=== PATIENT | male | born 1990 | race Caucasian/White ===

== ENCOUNTER 2025-09-05 11:10 | Emergency (ER) | payer SELFPAY ==
--- NOTE | ~2025-09-05 | XR_ITS ---
EXAMINATION: XR chest 2V, 09/05/2025 12:28 CDT HISTORY: chest pain COMPARISON: No comparisons available. Technique: 2 views obtained. Findings: The lungs are clear, no effusion. No pneumothorax. Heart is normal size. Mediastinal and hilar contours are within normal limits. Bony thorax no acute abnormality. Impression: No acute cardiopulmonary abnormality. Reviewed, dictated and finalized at location P. Impression: No acute cardiopulmonary abnormality.
--- NOTE | ~2025-09-05 | US_ITS ---
EXAMINATION: US venous doppler [facility] DATE: 09/05/2025 12:29 INDICATION: Bilateral foot and ankle swelling TECHNIQUE: Grayscale ultrasound images without and with compression and Doppler ultrasound images of the bilateral lower extremity veins were obtained. COMPARISON: None. FINDINGS: The visualized portions of right common femoral vein, profunda (deep) femoral vein, femoral vein, popliteal vein, posterior tibial veins, peroneal veins, gastrocnemius vein and greater saphenous vein outflow are patent. The visualized portions of left common femoral vein, profunda femoral vein, femoral vein, popliteal vein, posterior tibial veins, peroneal veins, gastrocnemius vein and greater saphenous vein outflow are patent. IMPRESSION: 1. No deep venous thrombosis in either lower limb. Reviewed, dictated and finalized at location A.
--- NOTE | 2025-09-05 11:12 | ECG_ITS ---
Test Date: 2025-09-05 11:16:19 Measurements Intervals [place] Rate: 88 P: 47 CA: 158 QRS: 12 QRSD: 84 T: 34 QT: 323 QTc: 393 Interpretive Statements SINUS RHYTHM NORMAL ECG No previous ECG available for comparison Electronically Signed On 09-05-2025 11:47:57 CDT by Keith Moreland D.O.
[2025-09-05 11:17] VITALS: BP 146/84; PULSE 89; RESP 20; TEMP 36.9; O2SAT 99
[2025-09-05 11:23] VITALS: O2SAT 99
[2025-09-05 11:25] VITALS: BP 146/84; PULSE 80; PULSE 84; RESP 17; TEMP 36.8; O2SAT 98
[2025-09-05] MEDS: ASPIRIN 81 MG CHEWABLE TABLET 324 MG PO (11:26)
[2025-09-05 11:27] LABS: Hematocrit 42.6 % (42.0-52.0); Hemoglobin 13.5 g/dL (14.0-18.0); Immature Granulocyte Percent A 0.8 % (0-0.5); Lymphocytes Absolute Auto 2.18 K/mm3 (0.9-3.2); Mean Corpuscular HGB Conc 31.7 g/dl (32-36); Mean Corpuscular Hemoglobin 27.6 pg (26-34); Mean Corpuscular Volume 86.9 fl (80-100); Nucleated Red Blood Cells Absolute Auto 0.000 K/mm3 (0.0-0.012); Nucleated Red Blood Cells Perc 0.0 % (0.0-0.2); Platelet Count Result 382 k/mm3 (150-375); Red Blood Count 4.90 M/mm3 (4.6-6.20); White Blood Count 9.5 K/mm3 (4.5-10.0)
[2025-09-05 11:39] LABS: INR 0.9; Prothrombin Time 12.2 Seconds (11.1-14.7)
[2025-09-05 11:39] LABS: Alanine Aminotransferase 21 U/L (6-50); Albumin Level 4.1 g/dL (3.5-5.1); Alkaline Phosphatase 102 U/L (38-126); Anion Gap 5 mmol/L (4-12); Aspartate Amino Transferase 23 U/L (17-59); Bilirubin,Total 0.2 mg/dL (0.2-1.3); Blood Urea Nitrogen 8 mg/dL (9-20); Calcium 9.6 mg/dL (8.4-10.2); Carbon Dioxide 24 mmol/L (22-30); Chloride 105 mmol/L (98-107); Estimated CRCL calculation 133 ml/min; Estimated Glomerular Filt Rate > 60; Glucose 99 mg/dL (65-110); Lipase 90 U/L (23-300); Potassium 4.6 mmol/L (3.4-5.0); Sodium 134 mmol/L (137-145); Total Protein 7.5 g/dL (6.3-8.2)
[2025-09-05 11:40] LABS: Partial Thromboplastin Time 26.6 Seconds (22.3-36.8)
[2025-09-05 11:49] LABS: Troponin I < 0.012 ng/mL (0.000-0.034)
--- NOTE | 2025-09-05 11:51 | ED.CHESTPAIN ---
HPI - Chest Pain General Chief Complaint: Chest Pain Stated Complaint: chest pain, feet swelling Time Seen by Provider: 09/05/25 11:15 Source: patient Mode of arrival: ambulatory Limitations: no limitations History of Present Illness HPI narrative: Patient is a 35-year-old male who presents the ED with report of chest pain. Reports he developed midsternal chest pain last night after eating [place]. Tried taking TUMS at home but denied improvement. States he woke up this morning with persistent chest pain and swelling in his miranda feet/ankles, worse in L foot. Also reports mild discomfort in upper abdomen. Denies hx of cardiac issues. Denies Hx of blood clots. Does not currently take anything for acid reflux. Patient reported to triage nurse that he quit using cocaine around 1 month ago. Denies numbness or pain of BLE. Denies injury. Related Data Allergies Allergy/AdvReac Type Severity Reaction Status Date / Time No Known Allergies Allergy Verified 09/05/25 11:26 Review of Systems Review of Systems: All systems reviewed & are unremarkable except as noted in HPI. All systems reviewed & are unremarkable except as noted in HPI and below [facility] Past Medical History Medical History (Updated 09/05/25 @ 14:52 by Nadya Melendez PA-C) Cyclical vomiting Pancreatitis Surgical History Surgical History No significant past surgical history Social History Social History Smoking status: Current every day smoker Exam Narrative: GENERAL: Mildly unkempt, well nourished, non-toxic, in no acute distress. HEAD: Normocephalic, atraumatic. RESPIRATORY: Airway patent, respirations nonlabored. Clear to auscultation bilaterally, no rales, rhonchi, wheezing. CARDIOVASCULAR: Regular rate and rhythm without murmurs, rubs, or gallops. ABDOMINAL: Soft, mild tenderness palpation in epigastric region, nondistended. Normoactive BS. MUSCULOSKELETAL: Moves all extremities. No gross deformities. Mild tenderness to palpation over lower midsternal chest. Trace peripheral edema in bilateral feet/ankles, slightly worse on left. Sensation intact. Pedal pulses intact. SKIN: Warm, dry, normal color. NEURO: A&O X3. Speech clear. Cranial nerves II-XII grossly intact. Steady gait. No ataxic movements. PSYCHIATRIC: Appropriate mood and affect. Normal interaction. Course Vital Signs Vital signs: Vital Signs Temperature 98.5 F 09/05/25 11:17 Pulse Rate 89 09/05/25 11:17 Respiratory Rate 20 09/05/25 11:17 Blood Pressure 146/84 H 09/05/25 11:17 Pulse Oximetry 99 09/05/25 11:17 Oxygen Delivery Room Air 09/05/25 11:17 Temperature 98.2 F 09/05/25 11:25 Pulse Rate 84 09/05/25 11:25 Respiratory Rate 17 09/05/25 11: Blood Pressure 146/84 H 09/05/25 11: Pulse Oximetry 98 09/05/25 11:25 Oxygen Delivery Room Air 09/05/25 11:23 MDM - Chest Pain MDM Narrative Medical decision making narrative: Patient presented to ED with midsternal chest pain, swelling of extremities, upper abdominal pain. Vital signs are stable upon arrival. Patient is in no acute distress. Neurovascularly intact. EKG with sinus rhythm, no concerning ST changes. Baseline troponin undetectable. BNP WNL D-dimer WNL Chest x-ray clear Venous doppler US negative for DVT HEART score 1 3 hr troponin negative Overall reassuring workup. Low suspicion for ACS at this time. Discussed lab and imaging findings with patient. He is sleeping on re-evaluation. Will start patient on PPI. Recommended follow-up with PCP for further evaluation. Discussed dietary modifications. Patient is in agreement with plan, given return precautions. Discharged in stable condition. Medical Records Data Attestation: I reviewed the patient's medical records. Lab Data Attestation: I reviewed the patient's lab results. 09/05/25 11:20 09/05/25 11:20 Labs: Lab Results 09/05/25 09/05/25 09/05/25 Range/Units 11:20 11:22 14:17 WBC 9.5 (4.5-10.0) K/mm3 RBC 4.90 (4.6-6.20) M/mm3 Hgb 13.5 L (14.0-18.0) g/dL Hct 42.6 (42.0-52.0) % MCV 86.9 (80-100) fl MCH 27.6 (26-34) pg MCHC 31.7 L (32-36) g/dl RDW 14.8 H (11.5-14.5) % Plt Count 382 H (150-375) k/mm3 MPV 8.3 (7.4-10.4) fl Immature Gran % (Auto) 0.8 H (0-0.5) % Neut % (Auto) 67.4 (45.5-73.1) % Lymph % (Auto) 22.9 (18.3-44.2) % [place] % (Auto) 6.6 (2.6-8.5) % Eos % (Auto) 1.7 (0-4.4) % Baso % (Auto) 0.6 (0.2-1.2) % Lymph # (Auto) 2.18 (0.9-3.2) K/mm3 [place] # (Auto) 0.6 (0.1-0.6) K/mm3 Eos # (Auto) 0.2 (0-0.3) K/mm3 Baso # (Auto) 0.1 (0.0-0.1) K/mm3 Abs Immat Gran (auto) 0.08 H (0.00-0.031) K/mm3 Absolute Neuts (auto) 6.4 (1.3-6.7) K/mm3 Absolute Nucleated RBC 0.000 (0.0-0.012) K/mm3 Nucleated RBC % 0.0 (0.0-0.2) % PT 12.2 (11.1-14.7) Seconds INR 0.9 APTT 26.6 (22.3-36.8) Seconds D-Dimer < 0.27 (<0.48) ug/mL Sodium 134 L (137-145) mmol/L Potassium 4.6 (3.4-5.0) mmol/L Chloride 105 (98-107) mmol/L Carbon Dioxide 24 (22-30) mmol/L Anion Gap 5 (4-12) mmol/L BUN 8 L D (9-20) mg/dL Creatinine 0.69 L (0.7-1.3) mg/dL Estim Creat Clear Calc 133 ml/min Estimated GFR > 60 (59 - ) Glucose 99 (65-110) mg/dL Calcium 9.6 (8.4-10.2) mg/dL Total Bilirubin 0.2 (0.2-1.3) mg/dL AST 23 (17-59) U/L ALT 21 (6-50) U/L Alkaline Phosphatase 102 (38-126) U/L Troponin I < 0.012 < 0.012 (0.000-0.034) ng/mL NT-Pro-B Natriuret Pep < 20 (19.9-100) pg/mL Total Protein 7.5 (6.3-8.2) g/dL Albumin 4.1 (3.5-5.1) g/dL Lipase 90 (23-300) U/L Imaging Data Attestation: I personally reviewed and interpreted this imaging study as follows: Radiologist's impression: ITS Impressions Venous Doppler Study 09/05/25 12:34 IMPRESSION: 1. No deep venous thrombosis in either lower limb. Chest X-Ray 09/05/25 12:35 Impression: No acute cardiopulmonary abnormality. ECG Data EKG #1: Attestation: I personally reviewed and interpreted this ECG as follows: ECG completion date: 09/05/25 ECG completion time: 11:16 EKG Interpretation: normal rate (88), sinus rhythm and no ST changes Discharge Plan Discharge Clinical Impression: Atypical chest pain Patient Disposition: Home Condition: Stable Instructions: Antibiotic Form, Chest Pain (ED), Diet for Stomach Ulcers and Gastritis (ED) Additional Instructions: Take Protonix daily as prescribed. Avoid foods that are very greasy, spicy, fatty, acidic. Limited alcohol use. Limit NSAID use (ibuprofen, motrin, aleve/naproxen). Stay well hydrated. Follow-up with your primary care doctor for further evaluation. Return to the ED if you experience worsening or severe pain, difficulty breathing, unable to keep down food or drink, rectal bleeding, dark black stools, or any other symptoms of concern. Patient Language: Occitan Prescriptions: New pantoprazole [Protonix] 40 mg tablet,delayed release (DR/EC) 40 mg PO HS 28 Days Qty: 28 0RF Follow-up/Referrals: Scott Cross MD [Physician, Family Practice] Referral Note: PRIMARY CARE UNKNOWN,DOCTOR [Primary Care Provider] Time of Disposition: 14:59 Quality HEART score for chest pain patients History: slightly suspicious ECG: normal Age: < or = to 45 years Risk factors: 1 or 2 risk factors Troponin: < or = to 1x normal limit Heart score: 1
[2025-09-05] MEDS: BELLADONNA ALK/PHENOB ELIX 10 ML, MAG HYDROX/ALUMINUM HYD/SIMETH 30 ML, LIDOCAINE 2% VI... PO (12:00)
--- OUTSIDE RECORDS SUMMARY | 2025-09-05 12:25 | XMS_ITS | Clinical Summary ---
Author Organization [facility] Address [address] [place] [address] Care Team Providers Care Podiatry Assistant Name Role Phone Unavailable Primary Care Provider Unavailabl e Source Comments [facility],non-owned Affiliates and Associated Physician Practices is amultiple site organization consisting of ambulatory clinics and hospital sitesin [place], [place], [place] and [place]. This disclosure is being madepursuant to the Care Everywhere program and may not contain all information available regarding this patient. Last updated 18.[facility] Allergies Active Allergy Reactions Criticality Noted Date Comments Peanut-Derived Rash,Nausea and/or Vomiting Low 12/31 Medications * Be aware that medications may not be up to date on this document. Alwaysverify current medications with the patient. Other Active Other Active Other Active Alum & Mag Hydroxide-Simeth (ALMACONE II) 400-400-40 MG/5ML Take 15 mL by mouth q6h PRN (Other). 355 mL 0 8 Active promethazine (PHENERGAN) 25 MG tablet Take 25 mg by mouth q6h PRN (Nausea). 30 tablet 0 8 Active promethazine (PHENERGAN) 25 MG suppository Insert 25 mg into the rectum q12h PRN (Nausea). 10 suppository 0 8 Active hydrOXYzine hcl (ATARAX) 25 MG tablet Take 25 mg by mouth q6h PRN (Anxiety). 30 tablet 0 8 Active sertraline (ZOLOFT) 25 MG tablet Take 25 mg by mouth DAILY. 8 Active traMADol (ULTRAM) 50 MG tablet Take 50 mg by mouth q6h PRN (Pain). 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 Gender Identity Not on file Sexual Orientation Not on file Last Filed Vital Signs Vital Sign Reading Time Taken Comments Blood Pressure 120/65 02/08/2018 3:30 PM CDT Pulse 78 02/08/2018 3:30 PM CDT Temperature 36 C (96.8 F) 02/08/2018 12:36 PM CDT Respiratory Rate 21 02/08/2018 3:30 PM CDT Oxygen Saturation 97% 02/08/2018 3:30 PM CDT Inhaled Oxygen Concentration - - Weight 99.8 kg (220 lb) 02/08/2018 10:38 AM CDT Height 177.8 cm (5' 10) 01/12/2018 4:10 PM CARTON WAXING MACHINE OPERATOR Body Mass Index 31.57 01/12/2018 4:10 PM CARTON WAXING MACHINE OPERATOR Plan of Treatment Health Maintenance Due Date Last Done Comments HIV SCREENING 2005 HEPATITIS C SCREENING 03/27/2008 DTAP/TDAP/TD VACCINES (1 - Tdap) 2009 HEPATITIS B VACCINE (1 of 3 - 19+ 3-dose series) 2009 HPV VACCINE (1 - 3-dose SCDM series) 2017 DEPRESSION SCREENING 11/30/2024 COVID-19 VACCINE (1 - 2023-2 5 season) 2025 INFLUENZA VACCINE (#1) 2025 ZOSTER VACCINE (1 of 2) 2040 HIB VACCINE Aged Out No longer eligi ble based on patient's age to complete this topic MENINGOCOCCAL (Group B) VACC INE SHARED DECISION-MAKING Aged Out No longer eligibl e based on patient's age to complete this topic MENINGOCOCCAL GROUPS A/C/Y/W VACCINE Aged Out No longer eligible b ased on patient's age to complete this topic PNEUMOCOCCAL VACCINE Aged Out No long er eligible based on patient's age to complete this topic Insurance MEDICAID [facility] MEDICAID - [facility]
--- OUTSIDE RECORDS SUMMARY | 2025-09-05 12:25 | XMS_ITS | Clinical Summary ---
Author Organization [facility] Address [address] [place] [address] Phone Care Team Providers Care Inspector Water Pollution Control Name Role Phone Unavailable Primary Care Provider Unavailabl e Allergies No known active allergies Medications amLODIPine (NORVASC) 5 mg tablet Take 5 mg by mouth daily. Active traZODone (DESYREL) 100 mg tablet Take 100 mg by mouth daily at bedtime. Active sertraline (ZOLOFT) 100 mg tablet Take 100 mg by mouth daily. Active amitriptyline (ELAVIL) 25 mg tablet Take 1 Tablet (25 mg) by mouth daily at bedtime. 30 Tablet 03/24/2018 Active Active Problems Problem Noted Date Diagnosed Date Depression 03/23/2018 HTN (hypertension) 03/23/2018 Marijuana abuse 03/23/2018 Right upper quadrant abdominal pain 03/23/2018 Intractable cyclical vomiting with nausea 2017 Leukocytosis (leucocytosis) 03/23/2018 Dehydration Gastroenteritis Social History Tobacco Use Types Packs/Day Years Used Date Smoking Tobacco: Never Smokeless Tobacco: Never Sex and Gender Information Value Date Recorded Sex Assigned at Not on file Legal Sex Male 6:18 PM CDT Gender Identity Not on file Sexual Orientation Not on file Last Filed Vital Signs Vital Sign Reading Time Taken Comments Blood Pressure 120/70 03/24/2018 12:14 PM CDT Pulse 66 03/24/2018 12:14 PM CDT Temperature 36.8 C (98.3 F) 03/24/2018 12:14 PM CDT Respiratory Rate 18 03/24/2018 12:1 4 PM CDT Oxygen Saturation 96% 03/24/2018 12: 14 PM CDT Inhaled Oxygen Concentration - - Weight 100.2 kg (220 lb 14.4 oz) 03/24/2018 5:00 AM CDT Height 177.8 cm (5' 10) 03/23/2018 8:17 AM CDT Body Mass Index 31.7 03/23/2018 8:17 AM CDT Plan of Treatment Health Maintenance Due Date Last Done Comments DTAP/TDAP/TD VACCINES (1 - Tdap) 2009 HEPATITIS B VACCINES (1 of 3 - 19+ 3-dose series) 01/2009 HPV VACCINES (1 - 3-dose SCDM series) 2017 INFLUENZA VACCINE (#1) 2025 Advance Directives For more information, please contact: [phone] * Full Code (Latest Code Status on File) Date Activated Date Inactivated Comments 03/23/2018 2:10 AM 03/24/2018 5:44 PM
--- OUTSIDE RECORDS SUMMARY | 2025-09-05 12:25 | XMS_ITS | Clinical Summary ---
Author Organization [facility] Address [address] [place] [address] Care Team Providers Care Surveillance Officer Name Role Phone Tiffany Yo MD Primary Care Provider [phone] Allergies Active Allergy Reactions Criticality Noted Date Comments Peanut Anaphylaxis High 10/04/2019 Medications amitriptyline (ELAVIL) 25 mg tablet Take 1 tablet (25 mg total) by mouth nightly 30 tablet 10/05/[address] (PROTONIX) 40 mg EC tablet Take 1 tablet (40 mg total) by mouth daily for 14 days 14 tablet 10/05/2019 Active ondansetron (ZOFRAN) 4 mg tablet Take 1 tablet (4 mg total) by mouth every 8 (eight) hours as needed for nausea or vomiting 20 tablet 10/05/2019 Active Active Problems Problem Noted Date Diagnosed Date Intractable vomiting with nausea 11/30/2022 Abdominal pain 10/05/2019 Assessment & Plan (10/05/2019 10:17 AM SPOOL WINDER): Left-sided, with associated nausea/vomiting. Patient denies pain this morning. -trial GI cocktail and famotidine, prn morphine, zofran - Restarting amitriptyline Assessment & Plan (10/05/2019 12:32 AM SPOOL WINDER): Left-sided, with associated nausea/vomiting. Differential includes PUD, gastritis, marijuana hyperemesis syndrome (though denies significant use when asked), cyclic vomiting syndrome, IBS. Unlikely pancreatitis, diverticulitis given normal imaging and negative lipase. -trial GI cocktail and famotidine again, prn morphine, zofran -Consider restarting amitriptyline HTN (hypertension) 10/05/2019 Assessment & Plan (10/05/2019 10:15 AM SPOOL WINDER): Previously on norvasc- patient been off for a couple of months, currently normotensive. Patient reports checking his blood pressure at home and having findings in the 200s - continue to monitor Assessment & Plan (10/05/2019 12:33 AM SPOOL WINDER): Previously on norvasc, currently normotensive, CTM Depression 10/05/2019 Assessment & Plan (10/05/2019 12:33 AM SPOOL WINDER): Previously on sertraline and trazodone, has been out of medications as he is unable to go see his doctor. Previously depression and stress have worsened symptoms. -Consider restarting meds when tolerating PO Nausea and vomiting 10/05/2019 Assessment & Plan (10/05/2019 10:19 AM SPOOL WINDER): Patient tolerating clear liquid breakfast, advancing for lunch. Patient believes symptoms could be related to stressors at home. Also reports symptoms consistent with GERD - Zofran prn, famotidine - PPI trial at discharge Surgical History Surgery Date Site/Laterality Comments CHOLECYSTECTOMY Medical History Medical History Date Comments Hypertension Depression Pancreatitis Diverticulosis Social History Tobacco Use Types Packs/Day Years Used Date Smoking Tobacco: Former Alcohol Use Standard Drinks/Week Comments Not Currently 0 (1 standard drink = 0.6 oz pur e alcohol) Personal Safety Answer Date Recorded Getting School Help Needed Not on file 01/23 Sex and Gender Information Value Date Recorded Sex Assigned at Not on file Legal Sex Male 11:49 PM SPOOL WINDER Gender Identity Not on file Sexual Orientation Not on file Obstetrics History Last Filed Vital Signs Vital Sign Reading Time Taken Comments Blood Pressure 125/80 12/01/2022 3:55 AM SPOOL WINDER Pulse 87 12/01/2022 3:55 AM SPOOL WINDER Temperature 36.9 C (98.4 F) 12/01/2022 3:55 AM SPOOL WINDER Respiratory Rate 20 12/01/2022 3:55 AM SPOOL WINDER Oxygen Saturation 99% 12/01/2022 3:55 AM SPOOL WINDER Inhaled Oxygen Concentration - - Weight 93.2 kg (205 lb 6.4 oz) 10/05/2019 12:40 AM SPOOL WINDER Height 177.8 cm (5' 10) 10/05/2019 12:40 AM SPOOL WINDER Body Mass Index 29.47 10/05/2019 12:40 AM SPOOL WINDER Plan of Treatment Health Maintenance Due Date Last Done Comments Depression Screening 1990 DTaP/Tdap/Td Vaccine (1 - Tdap) 2001 Varicella Vaccines (1 of 2 - 13+ 2-dose series) 2003 Hepatitis B Screening 2008 Regular Well Visit/Exam 18-64 2008 HPV Vaccines (1 - 3-dose SCD M series) 2017 Influenza Vaccine (#1) 2025 Hepatitis C Screening Completed 10/04/2019 Pneumococcal vaccine <65 Aged Out No longer eligible based on patient's age to complete this topic Procedures Procedure Name Priority Date/Time Associated Diagnosis Comments HEPATITIS PANEL, ACUTE STAT 10/04/2019 11:09 AM SPOOL WINDER from Last 3 Months or Most Recently Relevant to Health Maintenance Results * Hepatitis panel, acute (10/04/2019 11:09 AM SPOOL WINDER) Hep A IgM Nonreactive Nonreactive [facility] Comment: Interpretive Data If test is reported as GRAYZONE, new sample should be drawn in two weeks for testing. Current interpretive data was last revised on 2016. Hep B core IgM Nonreactive Nonreactive [facility] Comment: Interpretive Data If test is reported as GRAYZONE, new sample should be drawn for testing. Current interpretive data was last revised on 2016. Hep C Ab Nonreactive Nonreactive [facility] Comment: Interpretive Data Positive and greyzone results should be confirmed by a molecular method. If positive or greyzone, a second separately collected sample should be submitted for Hepatitis C Virus RNA. Detection and Quantitation by Real-Time Reverse Library Clerical Assistant-PCR.Current Interpretive data was last revised on 2017. HepBsAg Nonreactive Nonreactive [facility] Blood specimen (specimen) 10/04/2019 11:09 AM SPOOL WINDER 10/04/2019 11:21 AM SPOOL WINDER Narrative [facility] - 10/04/2019 1:34 PM SPOOL WINDER [facility]LECTION LOCATION IS [facility] ED3- Magaly Goyal JOB SPECIFICATION WRITER LAB MICROBIOLOGY - GENERA L ORDERABLES Edited Result - Final [facility] Department [place] [address] from Last 3 Months or Most Recently Relevant to Health Maintenance Advance Directives For more information, please contact: [phone] * Full Code (Latest Code Status on File) Date Activated Date Inactivated Comments 11/30/2022 4:12 PM 12/01/2022 12:49 PM * Full Code Date Activated Date Inactivated Comments 10/05/2019 1:09 AM 10/05/2019 5:40 PM Care Teams Surveillance Officer Relationship Specialty Start Date End Date Tiffany Yo MD [address] [place] [id number] PCP - General 10/04/19
--- OUTSIDE RECORDS SUMMARY | 2025-09-05 14:40 | XMS_ITS | Clinical Summary ---
Author Organization [facility] Address [address] [place] [address] Care Team Providers Care Control Systems Designer Name Role Phone Tiffany Yo MD Primary Care Provider Allergies Active Allergy Reactions Criticality Noted Date [...] 10/05/2019 Assessment & Plan (10/05/2019 10:17 AM ADVERTISING DESIGNER): Left-sided, with associated nausea/vomiting. Patient denies pain this morning. -trial GI cocktail and famotidine, prn morphine, zofran - Restarting amitriptyline Assessment & Plan (10/05/2019 12:32 AM ADVERTISING DESIGNER): Left-sided, with associated nausea/vomiting. Differential includes PUD, gastritis, marijuana hyperemesis syndrome (though denies significant use when asked), cyclic vomiting syndrome, IBS. Unlikely pancreatitis, diverticulitis given normal imaging and negative lipase. -trial GI cocktail and famotidine again, prn morphine, zofran -Consider restarting amitriptyline HTN (hypertension) 10/05/2019 Assessment & Plan (10/05/2019 10:15 AM ADVERTISING DESIGNER): Previously on norvasc- patient been off for a couple of months, currently normotensive. Patient reports checking his blood pressure at home and having findings in the 200s - continue to monitor Assessment & Plan (10/05/2019 12:33 AM ADVERTISING DESIGNER): Previously on norvasc, currently normotensive, CTM Depression 10/05/2019 Assessment & Plan (10/05/2019 12:33 AM ADVERTISING DESIGNER): Previously on sertraline and trazodone, has been out of medications as he is unable to go see his doctor. Previously depression and stress have worsened symptoms. -Consider restarting meds when tolerating PO Nausea and vomiting 10/05/2019 Assessment & Plan (10/05/2019 10:19 AM ADVERTISING DESIGNER): Patient tolerating clear liquid breakfast, advancing for [...] on file Legal Sex Male 11:49 PM ADVERTISING DESIGNER Gender Identity Not on file Sexual Orientation Not on file Obstetrics History Last Filed Vital Signs Vital Sign Reading Time Taken Comments Blood Pressure 125/80 12/01/2022 3:55 AM ADVERTISING DESIGNER Pulse 87 12/01/2022 3:55 AM ADVERTISING DESIGNER Temperature 36.9 C (98.4 F) 12/01/2022 3:55 AM ADVERTISING DESIGNER Respiratory Rate 20 12/01/2022 3:55 AM ADVERTISING DESIGNER Oxygen Saturation 99% 12/01/2022 3:55 AM ADVERTISING DESIGNER Inhaled Oxygen Concentration - - Weight 93.2 kg (205 lb 6.4 oz) 10/05/2019 12:40 AM ADVERTISING DESIGNER Height 177.8 cm (5' 10) 10/05/2019 12:40 AM ADVERTISING DESIGNER Body Mass Index 29.47 10/05/2019 12:40 AM ADVERTISING DESIGNER Plan of Treatment Health Maintenance Due Date [...] HEPATITIS PANEL, ACUTE STAT 10/04/2019 11:09 AM ADVERTISING DESIGNER from Last 3 Months or Most Recently Relevant to Health Maintenance Results * Hepatitis panel, acute (10/04/2019 11:09 AM ADVERTISING DESIGNER) Hep A IgM Nonreactive Nonreactive [facility] Comment: Interpretive Data If test is reported as GRAYZONE, new sample should be drawn in two weeks for testing. Current interpretive data was last revised on 2016. Hep B core IgM Nonreactive Nonreactive [facility] Comment: Interpretive Data If test is reported as GRAYZONE, new sample should be drawn for testing. Current interpretive data was last revised on 2016. Hep C Ab Nonreactive Nonreactive [facility] Comment: Interpretive Data Positive and greyzone results should be confirmed by a molecular method. If positive or greyzone, a second separately collected sample should be submitted for Hepatitis C Virus RNA. Detection and Quantitation by Real-Time Reverse Casting Operator Helper-PCR.Current Interpretive data was last revised on 2017. HepBsAg Nonreactive Nonreactive [facility] Blood specimen (specimen) 10/04/2019 11:09 AM ADVERTISING DESIGNER 10/04/2019 11:21 AM ADVERTISING DESIGNER Narrative [facility] - 10/04/2019 1:34 PM ADVERTISING DESIGNER [facility] LOCATION IS [facility] ED3- Magaly Goyal MACHINE WORKER LAB MICROBIOLOGY - GENERA L ORDERABLES Edited Result - Final [facility] Department [place] [address] from Last 3 Months or Most Recently Relevant to Health Maintenance Advance Directives For more information, please contact: [phone] * Full Code (Latest Code Status on File) Date Activated Date Inactivated Comments 11/30/2022 4:12 PM 12/01/2022 12:49 PM * Full Code Date Activated Date Inactivated Comments 10/05/2019 1:09 AM 10/05/2019 5:40 PM Care Teams Control Systems Designer Relationship Specialty Start Date End Date Tiffany Yo MD [address] [place] [id number] PCP - General 10/04/19
--- OUTSIDE RECORDS SUMMARY | 2025-09-05 14:40 | XMS_ITS | Clinical Summary ---
Author Organization [facility] Address [address] [place] [address] Phone Care Team Providers Care Ship Wirer Name Role Phone Unavailable Primary Care Provider [...] Advance Directives For more information, please contact: [phone] * Full Code (Latest Code Status on File) Date Activated Date Inactivated Comments 03/23/2018 2:10 AM 03/24/2018 5:44 PM
--- OUTSIDE RECORDS SUMMARY | 2025-09-05 14:40 | XMS_ITS | Clinical Summary ---
Author Organization [facility] Myla Address [address] [place] [address] Care Team Providers Care Safe Deposit Clerk Name Role Phone Unavailable Primary Care Provider Unavailabl e Source Comments [facility],non-owned Affiliates and Associated Physician Practices is amultiple site organization consisting of ambulatory clinics and hospital sitesin [place], [place], [place] and [place]. This disclosure is being madepursuant to the Care Everywhere program and may not contain all information available regarding this patient. Last updated 18.[facility] Allergies Active Allergy Reactions Criticality Noted Date [...] on file Legal Sex Male 5:42 PM DIRECTOR OF PLACEMENT Gender Identity Not on file Sexual Orientation [...] 177.8 cm (5' 10) 01/12/2018 4:10 PM DIRECTOR OF PLACEMENT Body Mass Index 31.57 01/12/2018 4:10 PM DIRECTOR OF PLACEMENT Plan of Treatment Health Maintenance Due Date [...] age to complete this topic Insurance MEDICAID [facility] MEDICAID - [facility]
[2025-09-05 14:45] LABS: Troponin I < 0.012 ng/mL (0.000-0.034)
[2025-09-05 14:51] LABS: NT Pro B Type Natriuretic Pept < 20 pg/mL (19.9-100)
[2025-09-05 15:17] VITALS: BP 135/83; PULSE 84; RESP 15; TEMP 36.6; O2SAT 99
== END 2025-09-05 15:18 | disposition home or self-care (01) ==
PROVIDERS: Family Medicine; Emergency Provider Physician Assistant
DX: R07.89 Other chest pain (principal); F17.200 Nicotine dependence, unspecified, uncomplicated
CPT/HCPCS: 36415; 71046; 80053; 83690; 83880; 84484; 85025; 85380; 85610; 85730; 93005; 93970; 99284; A9270

== ENCOUNTER 2025-10-18 14:17 | Emergency (ER) | payer OTHER, SELFPAY ==
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
[2025-10-18 14:19] VITALS: BP 137/80; PULSE 81; RESP 18; TEMP 36.4; O2SAT 100
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
--- NOTE | 2025-10-18 19:19 | PC.NURSE ---
pt requesting something to eat. per dr mas, okay for pt to eat at this time
[2025-10-18] MEDS: CYCLOBENZAPRINE HCL 10 MG TABLET PO (19:21)
[2025-10-18] MEDS: IBUPROFEN 600 MG TABLET PO (19:21)
[2025-10-18 19:25] VITALS: BP 156/71; PULSE 80; RESP 16; O2SAT 97
--- OUTSIDE RECORDS SUMMARY | 2025-10-18 21:46 | XMS_ITS | Clinical Summary ---
Author Organization [facility] Address [address] [place] [address] Care Team Providers Care Display Department Manager Name Role Phone Unavailable Primary Care Provider Unavailabl e Source Comments [facility],non-owned Affiliates and Associated Physician Practices is amultiple site organization consisting of ambulatory clinics and hospital sitesin [place], [place], [place] and [place]. This disclosure is being madepursuant to the Care Everywhere program and may not contain all information available regarding this patient. 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 Gender Identity Not on file Sexual Orientation [...] 177.8 cm (5' 10) 01/12/2018 4:10 PM COIL FINISHER Body Mass Index 31.57 01/12/2018 4:10 PM COIL FINISHER Plan of Treatment Health Maintenance Due Date Last Done Comments HIV SCREENING 2005 HEPATITIS C SCREENING 03/27/2008 DTAP/TDAP/TD VACCINES (1 - Tdap) 2009 HEPATITIS B VACCINE (1 of 3 - 19+ 3-dose series) 2009 HPV VACCINE (1 - 3-dose SCDM series) 2017 DEPRESSION SCREENING 11/30/2024 COVID-19 VACCINE (1 - 2024-2 6 season) 2025 INFLUENZA VACCINE (#1) 2025 ZOSTER [...] age to complete this topic Insurance MEDICAID [facility] MEDICAID - [facility]
--- OUTSIDE RECORDS SUMMARY | 2025-10-18 21:46 | XMS_ITS | Clinical Summary ---
Author Organization [facility] Address [address] [place] [address] Phone Care Team Providers Care Operating Room Technician Name Role Phone Unavailable Primary Care Provider [...] Advance Directives For more information, please contact: [phone] * Full Code (Latest Code Status on File) Date Activated Date Inactivated Comments 03/23/2018 2:10 AM 03/24/2018 5:44 PM
--- OUTSIDE RECORDS SUMMARY | 2025-10-18 21:46 | XMS_ITS | Clinical Summary ---
Author Organization [facility] Address [address] [place] [address] Care Team Providers Care Respiratory Therapy Instructor Name Role Phone Tiffany Yo MD Primary Care Provider [phone] Allergies Active Allergy Reactions Criticality Noted Date [...] 10/05/2019 Assessment & Plan (10/05/2019 10:17 AM PERSONAL SECURITY SPECIALIST): Left-sided, with associated nausea/vomiting. Patient denies pain this morning. -trial GI cocktail and famotidine, prn morphine, zofran - Restarting amitriptyline Assessment & Plan (10/05/2019 12:32 AM PERSONAL SECURITY SPECIALIST): Left-sided, with associated nausea/vomiting. Differential includes PUD, gastritis, marijuana hyperemesis syndrome (though denies significant use when asked), cyclic vomiting syndrome, IBS. Unlikely pancreatitis, diverticulitis given normal imaging and negative lipase. -trial GI cocktail and famotidine again, prn morphine, zofran -Consider restarting amitriptyline HTN (hypertension) 10/05/2019 Assessment & Plan (10/05/2019 10:15 AM PERSONAL SECURITY SPECIALIST): Previously on norvasc- patient been off for a couple of months, currently normotensive. Patient reports checking his blood pressure at home and having findings in the 200s - continue to monitor Assessment & Plan (10/05/2019 12:33 AM PERSONAL SECURITY SPECIALIST): Previously on norvasc, currently normotensive, CTM Depression 10/05/2019 Assessment & Plan (10/05/2019 12:33 AM PERSONAL SECURITY SPECIALIST): Previously on sertraline and trazodone, has been out of medications as he is unable to go see his doctor. Previously depression and stress have worsened symptoms. -Consider restarting meds when tolerating PO Nausea and vomiting 10/05/2019 Assessment & Plan (10/05/2019 10:19 AM PERSONAL SECURITY SPECIALIST): Patient tolerating clear liquid breakfast, advancing for [...] on file Legal Sex Male 11:49 PM PERSONAL SECURITY SPECIALIST Gender Identity Not on file Sexual Orientation Not on file Last Filed Vital Signs Vital Sign Reading Time Taken Comments Blood Pressure 125/80 12/01/2022 3:55 AM PERSONAL SECURITY SPECIALIST Pulse 87 12/01/2022 3:55 AM PERSONAL SECURITY SPECIALIST Temperature 36.9 C (98.4 F) 12/01/2022 3:55 AM PERSONAL SECURITY SPECIALIST Respiratory Rate 20 12/01/2022 3:55 AM PERSONAL SECURITY SPECIALIST Oxygen Saturation 99% 12/01/2022 3:55 AM PERSONAL SECURITY SPECIALIST Inhaled Oxygen Concentration - - Weight 93.2 kg (205 lb 6.4 oz) 10/05/2019 12:40 AM PERSONAL SECURITY SPECIALIST Height 177.8 cm (5' 10) 10/05/2019 12:40 AM PERSONAL SECURITY SPECIALIST Body Mass Index 29.47 10/05/2019 12:40 AM PERSONAL SECURITY SPECIALIST Plan of Treatment Health Maintenance Due Date [...] HEPATITIS PANEL, ACUTE STAT 10/04/2019 11:09 AM PERSONAL SECURITY SPECIALIST from Last 3 Months or Most Recently Relevant to Health Maintenance Results * Hepatitis panel, acute (10/04/2019 11:09 AM PERSONAL SECURITY SPECIALIST) Hep A IgM Nonreactive Nonreactive [facility] Comment: Interpretive Data If test is reported [...] on 2016. Hep C Ab Nonreactive Nonreactive [facility] Comment: Interpretive Data Positive and greyzone results should be confirmed by a molecular method. If positive or greyzone, a second separately collected sample should be submitted for Hepatitis C Virus RNA. Detection and Quantitation by Real-Time Reverse Painter Sign Maintenance-PCR.Current Interpretive data was last revised on 2017. HepBsAg Nonreactive Nonreactive [facility] Blood specimen (specimen) 10/04/2019 11:09 AM PERSONAL SECURITY SPECIALIST 10/04/2019 11:21 AM PERSONAL SECURITY SPECIALIST Narrative [facility] - 10/04/2019 1:34 PM PERSONAL SECURITY SPECIALIST THE [facility] COLLECTION LOCATION IS [facility] ED3[facility] Magaly Sandra Keeven TELEMETRY MONITOR LAB MICROBIOLOGY - GENERA L ORDERABLES Edited Result - Final [facility] Department of Laboratories [place], [place] [id number] from Last 3 Months or Most Recently Relevant to Health Maintenance Advance Directives For more information, please contact: [phone] * Full Code (Latest Code Status on File) Date Activated Date Inactivated Comments 11/30/2022 4:12 PM 12/01/2022 12:49 PM * Full Code Date Activated Date Inactivated Comments 10/05/2019 1:09 AM 10/05/2019 5:40 PM Care Teams Respiratory Therapy Instructor Relationship Specialty Start Date End Date Tiffany Yo MD [address] [place] [id number] PCP - General 10/04/19
== END 2025-10-18 19:28 | disposition home or self-care (01) ==
PROVIDERS: Emergency Provider Emergency Medicine
DX: S19.9XXA Unspecified injury of neck, initial encounter (principal); S39.92XA Unspecified injury of lower back, initial encounter; F17.210 Nicotine dependence, cigarettes, uncomplicated; V49.40XA Driver injured in collision with unspecified motor vehicles in traffic accident, initial encounter
CPT/HCPCS: 70450; 72125; 72128; 72131; 99284; A9270